=== PATIENT | female | born 1965 | race Two or more races ===

== ENCOUNTER 2018-04-13 15:45 | Emergency (ER) | payer OTHER ==
[~2018-04-13] VITALS: Ht 162.6 cm; Wt 65.5 kg
[2018-04-13 15:50] VITALS: BP 169/87
[2018-04-13] MEDS ORDERED: LORazepam 1MG TABLET PO ONE (16:30)
[2018-04-13] MEDS ORDERED: LORazepam 1MG TABLET ONE (16:43)
[2018-04-13] MEDS ORDERED: PLEASE ENTER ALLERGIES MC SCH (17:00)
[2018-04-13] MEDS ORDERED: PLEASE ENTER HEIGHT AND WEIGHT MC SCH (17:00)
== END 2018-04-13 17:38 | disposition home or self-care (01) ==
LOC: ED 17:37
DX: F41.1 Generalized anxiety disorder (principal)
CPT/HCPCS: 36415; 80164; 99284